=== PATIENT | female | born 1985 ===

== ENCOUNTER 2022-06-19 05:23 | Inpatient (IN) | payer OTHER | END 2022-06-21 11:44 | disposition home or self-care (01) | DRG 807 | LOC: LDR 05:23 → OB/GYN 07:41 | PROVIDERS: ADMIT Specialist | PROC: 10E0XZZ Delivery of Products of Conception, External Approach (ICD-10-PCS; principal; 2022-06-19) | PROC: 0KQM0ZZ Repair Perineum Muscle, Open Approach (ICD-10-PCS; 2022-06-19) | PROC: 4A1HXCZ Monitoring of Products of Conception, Cardiac Rate, External Approach (ICD-10-PCS; 2022-06-19) | DX: O70.1 Second degree perineal laceration during delivery (principal); Z37.0 Single live birth; Z3A.39 39 weeks gestation of pregnancy; Z20.822 Contact with and (suspected) exposure to COVID-19 ==